=== PATIENT | male | born 1945 | race Caucasian/White ===

== ENCOUNTER 2021-09-26 10:03 | Day surgery (SDC) | payer MEDICARE, OTHER ==
[2021-09-25 15:27] LABS: ALBUMIN 3.5 G/DL (3.4-5.0); ALBUMIN/GLOBULIN RATIO 1.1 (1.1-1.5); ALKALINE PHOSPHATASE 53 IU/L (46-116); BLOOD UREA NITROGEN 17 MG/DL (7-18); BUN/CREATININE RATIO 18.1 (5.4-32.0); CALCIUM 8.3 MG/DL (8.5-10.1); CHLORIDE 108 MMOL/L (99-107); CREATININE 0.94 MG/DL (0.60-1.10); PRE OP ALT 24 U/L (30-65); PRE OP ANION GAP 6 (8-16); PRE OP AST 16 U/L (10-37); PRE OP BILIRUB, TOTAL 0.4 MG/DL (0.0-1.0); PRE OP GLUCOSE 72 MG/DL (70-104); PRE OP SODIUM 143 MMOL/L (135-145); TOTAL CARBON DIOXIDE 28.8 MMOL/L (24-32); TOTAL PROTEIN 6.6 G/DL (6.4-8.2); eGFR 78 ML/MIN
[2021-09-25 15:42] LABS: BASOPHILS # (AUTO) 0.1 X10'3 (0-0.2); BASOPHILS % (AUTO) 1.1 % (0-1); EOSINOPHILS # (AUTO) 0.3 X10'3 (0-0.9); EOSINOPHILS % (AUTO) 5.7 % (0-6); LYMPHOCYTES # (AUTO) 1.8 X10'3 (1.1-4.8); LYMPHOCYTES % (AUTO) 33.6 % (21-51); MEAN CORPUSCULAR HEMOGLOBIN 31.4 PG (27.0-31.0); MEAN CORPUSCULAR HGB CONC 33.2 g/dL (33.0-36.5); MEAN CORPUSCULAR VOLUME 94.7 FL (78-98); MEAN PLATELET VOLUME 7.9 FL (7.4-10.4); MONOCYTES # (AUTO) 0.7 X10'3 (0-0.9); MONOCYTES % (AUTO) 12.2 % (2-12); NEUTROPHILS # (AUTO) 2.5 X10'3 (1.8-7.7); NEUTROPHILS % (AUTO) 47.4 % (42-75); PRE OP HEMATOCRIT 41.6 % (42.0-52.0); PRE OP HEMOGLOBIN 13.8 g/dL (14.0-17.9); PRE OP PLATELET COUNT 252 X10'3 (140-440); RED BLOOD COUNT 4.39 X10'6 (4.70-6.10); RED CELL DISTRIBUTION WIDTH 14.1 % (11.5-14.5)
[2021-09-26] VITALS (10 sets, daily range): BP systolic 119–157; BP diastolic 63–96
[~2021-09-26] VITALS: Ht 170.2 cm; Wt 74.7 kg
[~2021-09-26 10:03] MED LIST: ASPI81TA52 PO; ceFAZolin 1,000 MG in NS 50ML IVPB IV ONE; famotidine 20mg tablet PO ONE; ringers solution, lacted 1,000 ML IV SCH
[2021-09-26] MEDS ORDERED: LIDOcaine 1% 30ml preserv. free vial ONE (11:10)
[2021-09-26] MEDS ORDERED: BUPIVAcaine 0.5% inj/PF 30 ML ONE ×2 (11:10→11:42)
[2021-09-26] MEDS ORDERED: albuterol 60 PUFF/8GM Inhaler IH ONE (11:11)
[2021-09-26] MEDS ORDERED: fentaNYL /PF 50mcg/ml 5ml ampule ONE (11:17)
[2021-09-26] MEDS ORDERED: midazolam 1 mg/ML 2ml injection ONE (11:17)
[2021-09-26] MEDS ORDERED: rocuronium 10mg/ml inj IV ONE (11:33)
[2021-09-26] MEDS ORDERED: ondansetron/PF 4mg/2ml inj ONE (11:33)
[2021-09-26] MEDS ORDERED: dexamethasone sod phosphate 4mg/ml inj. ONE (11:33)
[2021-09-26] MEDS ORDERED: LIDOcaine 2% (20mg/ml) 5ml vial ONE (11:33)
[2021-09-26] MEDS ORDERED: ceFAZolin 1000mg inj ONE (11:33)
[2021-09-26] MEDS ORDERED: propofol inj 20 ML IV ONE (11:33)
[2021-09-26] MEDS ORDERED: BUPIVACAINE liposomal/PF 13.3 MG/ML vial IM ONE (11:42)
[2021-09-26] MEDS ORDERED: ePHEDrine 50MG/ML INJ. ONE (12:34)
[2021-09-26] MEDS ORDERED: neostigmine methylsulfate 1 MG/ML 10ml vial ONE (12:41)
[2021-09-26] MEDS ORDERED: glycopyrrolate 0.2mg/ml inj ONE (12:41)
[2021-09-26] MEDS ORDERED: BUPIVAcaine 0.5% inj/PF 30 ml vial IJ ONE (12:42)
[2021-09-26] MEDS ORDERED: oxyCODONE/APAP 5-325mg tablet PO PRN (12:50)
--- NOTE | 2021-09-26 12:54 | NUR ---
Received from OR via bed, accompanied by Anesthesiologist and report given by Anesthesiolgist and OR nurse. Pt has an oral airway in place with mild snoring respirations, o2 at 10 liters via mask, pupils pinpoint. pt attached to cardiac, BP, and pulse ox monitoring.
--- NOTE | 2021-09-26 13:20 | NUR ---
PT IS NOW AWAKE, ORAL AIRWAY REMOVED BY PT. PT DENIES PAIN AT THIS TIME, ENCOURAGED TO DEEP BREATH AND COUGH AND PT IS ABLE TO PERFORM THIS WITHOUT DIFFICULTY
--- NOTE | 2021-09-26 14:06 | NUR ---
pts called to transport pt home. she will arrive at 1435. Pt assisted getting dressed, denies pain at this time
--- NOTE | 2021-09-26 14:19 | NUR ---
I HAVE REVIEWED D/C INSTRUCTIONS WITH PATIENT AND THEY HAVE VERBALIZED UNDERSTANDING OF INSTRUCTIONS. PATIENT D/C HOME WITH ALL BELONGINGS AND FAMILY GAVE TRANSPORT IV D/JOSIE CATHETER INTACT, NO BLEEDING NOTED.
== END 2021-09-26 14:24 | disposition home or self-care (01) ==
LOC: PRE-OP 10:03
PROVIDERS: ATTEND Surgery
DX: K43.6 Other and unspecified ventral hernia with obstruction, without gangrene (principal); Z20.822 Contact with and (suspected) exposure to COVID-19; Z79.899 Other long term (current) drug therapy; Z79.82 Long term (current) use of aspirin; Z98.890 Other specified postprocedural states; Z87.891 Personal history of nicotine dependence; Z96.641 Presence of right artificial hip joint; Z82.49 Family history of ischemic heart disease and other diseases of the circulatory system
CPT/HCPCS: 36415; 49653; 64488; 80053; 82948; 85025; 87635; C1781; C9290; C9803; J0690; J1100; J2250; J2405; J2704; J2710; J3010; J3490; J7030; J7120; S0020; Z7506; Z7508; Z7512; A4215; A4618